=== PATIENT | male | born 1935 | race Caucasian/White ===

== ENCOUNTER 2024-07-13 05:57 | Day surgery (SDC) | payer MEDICARE, OTHER ==
[~2024-07-13] VITALS: Ht 182.9 cm; Wt 93.5 kg
[2024-07-13] VITALS (9 sets, daily range): BP systolic 90–127; BP diastolic 50–76
[~2024-07-13 05:57] MED LIST: ALBU90OI INH; ATOR10 PO; ERGO400; FLONASE ALLERG9.9 M2; Hytrin2 MG PO; NASACORT10.8 ML; PRESERVISION A1 EAC1 PO; ZOCOR20 MG PO
[2024-07-13] MEDS ORDERED: CeFAZolin Sodium 2,000 MG in NS 100 ML IV SCH (06:25)
[2024-07-13] MEDS ORDERED: Lactated Ringer's 1,000 ML IV SCH (06:25)
[2024-07-13] MEDS ORDERED: CeFAZolin Sodium 2,000 MG VIAL ONE (06:52)
[2024-07-13] MEDS ORDERED: Lidocaine HCl 1% 30 ML SDV ONE (07:04)
[2024-07-13] MEDS ORDERED: Bupivacaine 0.5% HCl 5 MG/ML 30MLVIAL ONE (07:05)
--- NOTE | 2024-07-13 07:08 | NUR ---
Ambulatory in Day Surgery WITH STEADY GAIT. ABLE TO USE RESTROOM INDEPENDENTLY. History, Chart, Medications and Allergies reviewed before start of procedure. Patient States Post-Procedure ride home has been arranged WITH DAUGHTER. SPOUSE, DAUGHTER AND SON ROTATING AT BEDSIDE DURING PRE OP. ALL BELONGINGS PLACED UNDER GURN. WARM BLANKET PROVIDED. PT AND FAMILY DENY ANY FURTHER QUESTIONS OR NEEDS AT THIS TIME.
[2024-07-13] MEDS ORDERED: propofoL 60 ML IV ONE (07:15)
[2024-07-13] MEDS ORDERED: HYDROcodone 5-APAP 325 TAB PO PRN (08:35)
--- NOTE | 2024-07-13 09:15 | NUR ---
Patient up to Ambulate independently. Gait steady. Discharge instructions reviewed with patient. Patient verbalizes understanding. Copy given to patient to take home. Discharged via wheelchair to private car for ride home.
== END 2024-07-13 09:15 | disposition home or self-care (01) ==
LOC: ORSCMMR 05:57 → ORD 07:30 → ORSCMMR 07:30
PROVIDERS: Surgery
PROC: 0JH63WZ Insertion of Totally Implantable Vascular Access Device into Chest Subcutaneous Tissue and Fascia, Percutaneous Approach (ICD-10-PCS; principal; 2024-07-13 07:30)
PROC: B543ZZA Ultrasonography of Right Jugular Veins, Guidance (ICD-10-PCS; principal; 2024-07-13 07:30)
PROC: 05HM33Z Insertion of Infusion Device into Right Internal Jugular Vein, Percutaneous Approach (ICD-10-PCS; principal; 2024-07-13 07:30)
DX: C83.38 Diffuse large B-cell lymphoma, lymph nodes of multiple sites (principal); E78.5 Hyperlipidemia, unspecified; K21.9 Gastro-esophageal reflux disease without esophagitis; Z86.718 Personal history of other venous thrombosis and embolism; Z79.899 Other long term (current) drug therapy
CPT/HCPCS: 77001; C1788; J0690; J1642; J2704; J7120